=== PATIENT | male | born 1970 ===

== ENCOUNTER → 2018-09-28 | Outpatient (CLI) | payer OTHER ==
--- NOTE | 2018-09-28 13:02 | MR ---
EXAMINATION TYPE: MR lumbar spine wo con DATE OF EXAM: 09/28/2018 COMPARISON: None HISTORY: Intervertebral disc disorders with rad TECHNIQUE: Multiplanar, multisequence images of the lumbar spine were acquired. FINDINGS: There is a T1/T2 hyperintense vertebral body hemangioma of the superior endplate of L2. Mul tilevel disc disease is seen. Conus medullaris is unremarkable terminating at L1-L2. Vertebral body h eights and alignment are maintained of the lumbar spine. T12-L1: There is a broad-based disc bulge without spinal canal stenosis nor neural foraminal narrowin g. L1-L2: Broad-based disc bulge is seen as well as mild facet arthropathy resulting in minimal bilatera l neural foraminal narrowing without spinal canal stenosis. L2-L3: There is a left paracentral disc herniation at the left lateral recess extending into the left neural foramen creating mild left neural foraminal narrowing in combination with facet arthropathy. Right neural foramen and spinal canal are patent. L3-L4: There is a very small right paracentral disc herniation superimposed upon a right eccentric di sc bulge that creates mild to moderate right neural foraminal narrowing. Left neural foramen and spin al canal are patent. L4-L5: Broad-based disc bulge and facet arthropathy are seen creating mild bilateral neural foraminal narrowing without spinal canal stenosis. L5-S1: There is a small central disc herniation superimposed upon a broad-based disc bulge that in co mbination with facet arthropathy contribute to mild neural foraminal narrowing. There is also a left paracentral annular tear. IMPRESSION: 1. Left paracentral disc herniation at L2-L3 contributes to mild left neural foraminal narrowing. 2. Very small right paracentral disc herniation at L3-L4. The right eccentric disc bulge create mild to moderate right neural foraminal narrowing. 3. Left paracentral annular tear at L5-S1. Disc bulge and facet arthropathy contribute to mild bilate ral neural foraminal narrowing at this level. 4. Mild degenerative disc disease at the remaining vertebral levels as detailed above.
== END ==
LOC: RADMRIMAIN 06:33
PROVIDERS: ATTEND Physical Medicine & Rehabilitation
DX: M48.07 Spinal stenosis, lumbosacral region (principal); M51.36 Other intervertebral disc degeneration, lumbar region; M51.27 Other intervertebral disc displacement, lumbosacral region; M46.97 Unspecified inflammatory spondylopathy, lumbosacral region; M51.37 Other intervertebral disc degeneration, lumbosacral region
CPT/HCPCS: 72148